=== PATIENT | male | born 1980 | race Caucasian/White ===

== ENCOUNTER 2016-12-16 12:04 | Emergency (ER) | payer OTHER ==
--- NOTE | ~2016-12-16 | CT4 ---
[facility] A Service [facility] RADIOLOGY TEXT RESULTS PATIENT: JER STEELE LOCATION: SED : 76 UNIT #: [id number] AGE: [address]: Cristy Rosales SEX: M ORDER DR: [id number] [id number] E MR#: [id number] Acc #: [id number] NAME: JER STEELE : 1980 SEX: M STUDY DATE/TIME: 12/16/2016 12:31 UNIT: SED ROOM: STUDY DESCRIPTION: CT Abd and Pelv Wo Cont Attending Physician: Cristy Rosales Pa-C Ordering Physician: Cristy Rosales Pa-C Primary Care Physician: Joseph Stephens M.D. MEDICAL IMAGING REPORT This report is preliminary unless electronic signature is present. EXAM CT abdomen and pelvis without contrast INDICATIONS Right lower back and flank pain for the past [address] of the abdomen and pelvis. This CT exam was performed with one or more of the following radiation dose reduction techniques: automatic exposure control, adjustment of mA and/or kV according to patient size, and iterative reconstruction. COMPARISON STUDIES None. FINDINGS ABDOMEN WITHOUT CONTRAST: The included lung bases are clear. Mild hepatic steatosis. The liver and spleen are otherwise unremarkable. The kidneys, adrenal glands, pancreas, gallbladder have an unremarkable unenhanced appearance. Bowel loops are non-dilated. Appendix is normal. No radiodense urinary system calculus or hydronephrosis. PELVIS WITHOUT CONTRAST: No radiodense bladder calculus. No pelvic mass or fluid. No aggressive appearing bone lesion. IMPRESSION 1. No acute findings. No radiodense urinary system calculus or hydronephrosis. 2. Mild hepatic steatosis. [facility] A Service [facility] RADIOLOGY TEXT RESULTS PATIENT: JER STEELE LOCATION: SED : 76 UNIT #: [id number] AGE: [address]: Cristy Rosales SEX: M ORDER DR: Dictated by... Jim Church M.D. THIS IS AN ELECTRONICALLY VERIFIED REPORT Jim Church M.D. at 12/17/2016 9:43 AM EED/pcl TD: 12/16/2016 14:30 JOB #: [id number] MEDICAL IMAGING REPORT Page 1 of 1
[2016-12-16 11:56] LABS: URINE SOURCE CLEAN CATCH
[2016-12-16 11:58] LABS: URINE APPEARANCE CLEAR; URINE BILIRUBIN NEG (NEG); URINE BLOOD 3+ (NEG); URINE COLOR YELLOW; URINE GLUCOSE NEG (NORM); URINE KETONE NEG (NEG); URINE LEUKOCYTE ESTERASE NEG (NEG); URINE NITRATE NEG (NEG); URINE PH 5.5 (5-8); URINE PROTEIN NEG (NEG); URINE UROBILINOGEN 0.2 MG/DL (NORM)
[2016-12-16 11:59] LABS: MICRO INDICATED? YES
[2016-12-16 12:04] LABS: URINE RBC 100-200 /[HPF] (0-2)
[2016-12-16 12:05] LABS: URINE BACTERIA 1+ (NEG); URINE GRANULAR CAST 0-2 /[HPF]; URINE HYALINE CAST 0-2 /[HPF]; URINE MUCUS PRESENT; URINE SQUAMOUS EPITHELIAL CELL FEW /[HPF]; URINE YEAST PRESENT
[2016-12-16 13:30] LABS: BASOPHIL# 0.1 X10e3 (0-0.3); BASOPHIL% 0.9 % (0-2.5); EOSINOPHIL# 0.3 X10e3 (0-0.7); EOSINOPHIL% 3.9 % (0.0-7.0); HEMATOCRIT 48.8 % (38.0-50.0); HEMOGLOBIN 16.7 gm/dL (13.0-16.0); LYMPHOCYTE# 1.8 X10e3 (1.0-3.5); LYMPHOCYTE% 19.7 % (17.0-45.0); MEAN CELL VOLUME 87.2 FL (83-96); MEAN CORPUSCULAR HEMOGLOBIN 29.9 PG (28-34); MEAN CORPUSCULAR HGB CONC 34.3 g/dL (30-36); MEAN PLATELET VOLUME 8.6 FL (6.5-11.5); MONOCYTE# 0.8 X10e3 (0-1.0); MONOCYTE% 8.5 % (3.0-12.0); PLATELET COUNT 192 X10e3 (140-420); RED CELL DISTRIBUTION WIDTH 12.6 % (11.0-15.5); WHITE BLOOD COUNT 8.9 X10e3 (4.0-10.5)
[2016-12-16 13:33] LABS: DIFF IND NO
[2016-12-16 13:38] LABS: INR 1.1; PROTHROMBIN TIME (PATIENT) 12.6 SECONDS (9.5-12.4)
[2016-12-16 13:45] LABS: PARTIAL THROMBOPLASTIN TIME 29.2 SECONDS (25.6-38.1)
[2016-12-16 13:47] LABS: ALBUMIN SERUM 4.5 g/dL (3.5-5.0); BILIRUBIN,TOTAL 0.6 mg/dL (0.2-2.0); GLOM FILT RATE Estimated 95.1 mL/min (>60); POTASSIUM 4.2 mmol/L (3.5-5.1); PROTEIN TOTAL SERUM 6.1 g/dL (6.0-8.3)
== END 2016-12-16 14:19 | disposition home or self-care (01) ==
LOC: SED 12:04
PROVIDERS: Physician Assistant
DX: R31.9 Hematuria, unspecified (principal); R10.9 Unspecified abdominal pain
CPT/HCPCS: 74176; 80053; 81003; 85025; 85610; 85730; 99284